=== PATIENT | male | born 1990 | race Caucasian/White ===

== ENCOUNTER 2017-05-18 22:06 | Emergency (ER) | payer OTHER ==
[~2017-05-18] VITALS: Ht 182.9 cm; Wt 88.5 kg
[2017-05-18 22:19] VITALS: TEMP 37.2; Ht 182.9 cm; Wt 88.5 kg
[2017-05-18] MEDS ORDERED: XYLOCAINE 1%/SOD BICARB 20 ML VIAL INFIL STA (23:44)
[2017-05-19] MEDS ORDERED: DIPHTHERIA/TETANUS/PERTUSSIS 0.5 ML SYR/VIAL IM. ONE (00:30)
--- NOTE | 2017-05-19 00:34 | EMERGENCY ROOM VISIT NOTE ---
ED Visit Note First contact with patient: 23:23 CHIEF COMPLAINT: Right pinky finger laceration, crush injury HISTORY OF PRESENT ILLNESS: This 26-year-old male patient presents to the emergency department approximately 1 hour after cutting the right fifth finger at work. The patient states he was holding a 200 pound machine, when it slipped , and his finger got stuck between the machine and a piece of metal. He states he immediately ran the finger under cold water for approximately 10 minutes due to moderate bleeding, which has improved. He did wash the hand with soap and water and wrapped it with gauze and an [place] wrap. The bleeding has not stopped. Denies weakness or numbness of the finger. The patient has full range of motion of the fingers. The patient rates the pain as stinging and 5/10. The patient denies any other injuries. The patient's tetanus shot is not up to date. REVIEW OF SYSTEMS: A 6 system review of systems was completed with positives and pertinent negatives listed in the HPI. ALLERGIES: Codeine MEDICATIONS: None PMH: None SOCIAL HISTORY: The patient lives locally alone. He denies drug, alcohol, tobacco use. PHYSICAL EXAM: Vital Signs: Reviewed Nurse's notes, vital signs stable. GENERAL : This is a 26-year-old white male, in no acute distress, well developed, well nourished. SKIN: There is a 1 cm long laceration on the anterior aspect of the right fifth finger extending from the DIP to middle phalanx. The edges gape apart with traction. There is no foreign material in the wound and it looks clean. There is minimal bleeding. No deep structures such as tendons, bones, or significant blood vessels are seen in the base of the wound. Extension and flexion of the finger is full and strong. Full range of motion of the wrist and other fingers. Capillary refill less than 2 seconds. Normal sensation to light and sharp touch. EMERGENCY DEPARTMENT COURSE: I examined the patient. X-ray of the digit performed. This was reviewed by myself with question of potential small nondisplaced fracture of the distal phalanx. I discussed this finding with the patient at bedside. Verbal consent was obtained to perform the procedure. The procedure was performed by the physician life enrichment assistant student under my direct supervision. Using sterile technique the wound was cleansed with Betadine. 5 ml of 1% buffered lidocaine was used to perform a digital block to anesthetize the patient. The area was sterilely draped. Once the patient was anesthetized , the wound was copiously irrigated under pressure with sterile saline. The wound was explored and there were no deep structures injured. The laceration was repaired using 3 simple interrupted 5-0 nylon sutures. The patient tolerated the procedure well. Hemostasis was achieved. The area was cleaned with sterile saline and dressed with bacitracin ointment and bandage. The finger was placed in a metal finger splint. The patient was given a tetanus booster and dose of ibuprofen. He was given a home pack for Keflex. Discharge instructions reviewed. The patient was discharged home in good condition. I attest that I have personally reviewed the patient's current medication list. Patient was found to have normal blood pressure on screening and does not require follow-up. Differential diagnosis includes laceration, contusion, fracture, sprain/strain, tendon or ligament injury, neurovascular compromise, foreign body, assault, and others DIAGNOSIS: Finger laceration, crush injury, workplace injury The chart was completed utilizing [employer] Speech voice recognition software. Grammatical errors, random word insertions, pronoun errors, and incomplete sentences are an occasional consequence of this system due to software limitations, ambient noise, and hardware issues. Any formal questions or concerns about the content, text, or information contained within the body of this dictation should be directly addressed to the provider for clarification. Current/Historical Medications Scheduled Cephalexin Monohydrate (Keflex), 500 MG PO QID Scheduled PRN Ibuprofen Tab (Motrin), 600 MG PO Q6H PRN for Pain Allergies Coded Allergies: Codeine (Verified Adverse Reaction, Unknown, hyper, 06/14/15) Vital Signs Date Time Temp Pulse Resp B/P (MAP) Pulse Ox O2 Delivery O2 Flow Rate FiO2 05/18/17 22:19 37.2 82 18 124/79 98 Room Air Medications Administered Medications (Trade) Dose Ordered Sig/Jessika Route Start Time Stop Time Status Last Admin Dose Admin Lidocaine HCl (Buffered Lidocaine 1% Inj) 20 ml NOW STAT INFIL 05/18/17 23:44 05/18/17 23:48 DC 05/19/17 00:01 20 ML Departure Information Impression Primary Impression: Laceration of finger Additional Impressions: Work related injury Crushing injury of finger of right hand Dispostion Home / Self-Care Condition GOOD Prescriptions Ibuprofen Tab (MOTRIN) 600 Mg Tab 600 MG PO Q6H Y for Pain, #30 TAB Prov: Milagros Merino PA-C 05/19/17 Cephalexin Monohydrate (KEFLEX) 500 Mg Cap 500 MG PO QID for 6 Days, #24 CAP Prov: Milagros Merino PA-C 05/19/17 Referrals No Doctor, Assigned (PCP) Patient Instructions ED Immunization Tetanus and FU, ED Laceration Hand, [facility] Additional Instructions You have received 3 sutures on your right fifth finger. These sutures are NOT dissolvable and WILL need to be removed by a health care provider in 10-14 days. You can return to the Emergency Department or contact your Primary Care Provider to have the sutures removed. Cephalexin(Keflex) 500mg: Take one pill four times daily for 7 days for your skin infection. All antibiotics can cause diarrhea. If this occurs and you feel worse or it does not resolve in 1-2 days follow up with your doctor or return to the Emergency Department as this could be signs of serious underlying problems. Any medication can cause an allergic reaction, stop the pills immediately and return to the ER for rash, hives, breathing difficulties, or swelling. Proper wound care is essential for adequate wound healing and infection prevention. You can shower and clean the wound with soap and water. Do not scour over the wound, pat dry with a towel. Do not submerse the wound (i.e. bathe or dish wash) until the sutures have been removed. You can use an antibiotic ointment with a dressing over the wound for the next 3-4 days. After this time you may leave the wound dry and open to the air. If crust develops over the wound you can use a Q-tip to apply a 1:1 peroxide:water solution to clean the wound. Look for signs of infection of the wound including: increased pain, swelling, foul discharge, streaking, or increased temperature. If any of these are noticed you should return to the Emergency Department for further assessment and treatment. As with any laceration you may have received nerve damage to the surrounding tissues. This damage may or may not be permanent. You should keep the area covered with sunscreen for the first 6 months to 1 year when at risk for exposure to help minimize scarring. You can also use scar reducing creams or Vitamin E oil to help minimize scarring. For pain control, you can use the following [id number] medicines (if >12 yo): Ibuprofen(Motrin, Advil) may be used for fever or pain. Use 600mg every six hours as needed. Take with food. Avoid using more than 2400mg in a 24 hour period. Do not use 2400mg per day for more than three consecutive days without physician direction. Prolonged inappropriate use can lead to stomach upset or ulcers. (AND/OR) Acetaminophen(Tylenol) may be used for fever or pain. Use 1000mg every six hours as needed. Avoid using more than 3000mg in a 24 hour period. Return to the emergency department if your symptoms worsen despite treatment course outlined above. Problem Qualifiers Primary Impression: Laceration of finger Encounter type: initial encounter Finger: little finger Damage to nail status: without damage Foreign body presence: without foreign body Laterality: right Qualified Codes: S61.216A - Laceration without foreign body of right little finger without damage to nail, initial encounter
[2017-05-19] MEDS ORDERED: CEPHALEXIN 500MG HOME PACK 1 EA BTL PO STA (00:50)
[2017-05-19] MEDS ORDERED: IBUP-1427 PO (00:55)
[2017-05-19] MEDS ORDERED: CEPH500C2 PO (00:55)
[2017-05-19] MEDS ORDERED: IBUPROFEN 600 MG TAB PO STA (00:55)
[2017-05-19 01:15] VITALS: BP 152/88; PULSE 72; O2SAT 98
--- NOTE | 2017-05-19 07:29 | DIAGNOSTIC IMAGING REPORT ---
RIGHT FIFTH FINGER 3 VIEWS CLINICAL HISTORY: crush injury right 5th finger PAIN COMPARISON: None. DISCUSSION: No acute fractures or dislocations are visualized. IMPRESSION: No fractures or dislocations identified. Electronically signed by: Jadiel El M.D. 05/19/2017 7:27 AM Dictated Date/Time: 05/19/2017 7:27 AM
== END 2017-05-19 01:15 | disposition home or self-care (01) ==
LOC: C.EDB 22:10 → C.EDD 05-19 01:15
DX: S61.216A Laceration without foreign body of right little finger without damage to nail, initial encounter (principal); W23.1XXA Caught, crushed, jammed, or pinched between stationary objects, initial encounter; Y99.0 Civilian activity done for income or pay; Z88.5 Allergy status to narcotic agent; Z23 Encounter for immunization

== ENCOUNTER 2017-06-01 16:12 | Emergency (ER) | payer OTHER ==
[~2017-06-01] VITALS: Ht 180.3 cm; Wt 87.0 kg
[~2017-06-01 16:12] MED LIST: IBUP-1427 PO
[2017-06-01 16:22] VITALS: TEMP 36.8; Ht 180.3 cm; Wt 87.0 kg
[2017-06-01 16:29] VITALS: BP 115/78; PULSE 65; O2SAT 100
--- NOTE | 2017-06-01 16:30 | EMERGENCY ROOM VISIT NOTE ---
ED Visit Note First contact with patient: 16:24 CHIEF COMPLAINT: Suture removal right fifth finger HPI: This patient returns to the ED today for removal of sutures that were placed 14 days ago into the right fifth finger. There has been no swelling, redness, or drainage from the wound. The patient feels like the laceration is healing well. REVIEW OF SYSTEMS: 6 system review was performed and was negative unless stated otherwise in history of present illness. PMH: The patient is healthy; there is no significant medical or surgical history. SOCIAL HISTORY: Patient denies tobacco alcohol use. PHYSICAL EXAM: Vital Signs: Were reviewed reviewed Nurse's notes. General: 26- year-old white male appears in no acute distress. MENTAL Status: Alert and oriented 3. RIGHT FIFTH FINGER: There is a sutured wound on the palmar aspect of the distal phalanx l with no signs of infection. There is no erythema, swelling, or tenderness. EMERGENCY DEPARTMENT COURSE: The sutures were removed without any difficulty and there was no separation of the wound edges. DIAGNOSIS: Healing right fifth laceration and suture removal DISCHARGE INSTRUCTIONS AND TREATMENT: Wash any remaining crusts off of the wound today and resume your normal activities. Current/Historical Medications Scheduled PRN Ibuprofen Tab (Motrin), 600 MG PO Q6H PRN for Pain Allergies Coded Allergies: Codeine (Verified Adverse Reaction, Unknown, hyper, 06/14/15) Vital Signs Date Time Temp Pulse Resp B/P (MAP) Pulse Ox O2 Delivery O2 Flow Rate FiO2 06/01/17 16:22 36.8 65 18 115/78 100 Room Air Departure Information Referrals No Doctor, Assigned (PCP) Patient Instructions [facility]
== END 2017-06-01 16:30 | disposition home or self-care (01) ==
LOC: C.EDB 16:13 → C.EDD 16:30
DX: S61.216D Laceration without foreign body of right little finger without damage to nail, subsequent encounter (principal); X58.XXXD Exposure to other specified factors, subsequent encounter; Z88.5 Allergy status to narcotic agent